=== PATIENT | male | born 1945 | race Caucasian/White ===

== ENCOUNTER → 2016-07-01 | Outpatient (CLI) | payer MEDICARE ==
[~2016-07-01] MED LIST: AUGMENTIN 875 M1 TAB PO; KEFLEX 500MG.500 MG PO
--- NOTE | 2016-07-01 10:11 | CARDIOVASCULAR REPORT ---
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 362.34 Transient retinal arterial occlusion. IMPRESSIONS 1. The bilateral vertebral arteries are patent with normal antegrade flow. 2. Study suggests less than 20% stenosis involving the right internal carotid artery and the left internal carotid artery. History: Risk factors: Current tobacco use. Hypertension. Carotid duplex study. Complete study and Doppler flow study including spectral analysis, color and bonner scale imaging. Height: Height: 188cm. Height: 74in. Weight: Weight: 113.4kg. Weight: 249.5lb. Body mass index: BMI: 32.1kg/m^2. Body surface area: BSA: 2.46m^2. Location: Vascular laboratory. Patient status: Outpatient. Tables: Arterial flow: + +--------+--------+ |Location |V sys |V ed | + +--------+--------+ |Right CCA - proximal|66.8cm/s|13.4cm/s| + +--------+--------+ |Right CCA - distal |58.9cm/s|12.6cm/s| + +--------+--------+ |Right ECA |80.1cm/s|--------| + +--------+--------+ |Right ICA - proximal|34.7cm/s|10.5cm/s| + +--------+--------+ |Right ICA - mid |44.1cm/s|13.8cm/s| + +--------+--------+ |Right ICA - distal |49.3cm/s|15.3cm/s| + +--------+--------+ |Right vertebral |36.4cm/s|--------| + +--------+--------+ |Left CCA - proximal |62.3cm/s|14.3cm/s| + +--------+--------+ |Left CCA - distal |65.6cm/s|17.1cm/s| + +--------+--------+ |Left ECA |87.7cm/s|--------| + +--------+--------+ |Left ICA - proximal |35.8cm/s|14cm/s | + +--------+--------+ |Left ICA - mid |63.7cm/s|18.3cm/s| + +--------+--------+ |Left ICA - distal |58.1cm/s|17.9cm/s| + +--------+--------+ |Left vertebral |21.4cm/s|--------| + +--------+--------+ Velocity ratios: + + + + + + | |Right, V sys|Right, V ed|Left, V sys|Left, V ed| + + + + + + |Max ICA/dist CCA|0.84 |1.21 |0.97 |1.07 | + + + + + + (Report amended ) Electronically signed by: Alan Álvarez [id number]"
== END ==
LOC: RT 09:28
DX: I63.232 Cerebral infarction due to unspecified occlusion or stenosis of left carotid arteries (principal)